=== PATIENT | female | born 1960 | race African-American/Black ===

== ENCOUNTER 2023-02-25 18:44 | Emergency (ER) | payer SELFPAY ==
[~2023-02-25] VITALS: Ht 170.2 cm; Wt 73.9 kg
[2023-02-25 18:58] VITALS: BP 139/78
[2023-02-25 19:27] LABS: BASOPHILS % 0.1 % (0.0-2.0); HEMOGLOBIN. 14.3 g/dL (12.0-16.0); LYMPHOCYTES % 11.3 % (20.0-50.0); MEAN CORPUSCULAR HEMOGLOBIN 29.4 pg (28.0-32.0); MEAN CORPUSCULAR VOLUME 88.1 fL (81.0-99.0); MEAN PLATELET VOLUME 8.7 fl (7.4-10.4); MONOCYTES % 3.1 % (2.0-8.0); NEUTROPHILS % 85.5 % (40.0-76.0); PLATELET 241 x1000/uL (130-400); RED BLOOD CELL COUNT 4.88 mill/uL (4.2-5.4); RED CELL DISTRIBUTION WIDTH 14.4 % (11.6-14.6)
[2023-02-25 19:41] LABS: CHLORIDE 107 mEq/L (98-107)
== END 2023-02-26 00:20 | disposition left against medical advice (07) ==
LOC: ER 18:44
DX: Z53.21 Procedure and treatment not carried out due to patient leaving prior to being seen by health care provider (principal)
CPT/HCPCS: 36415; 80053; 85025; 99281